=== PATIENT | female | born 2000 | race Caucasian/White ===

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

== ENCOUNTER 2025-03-14 09:50 | Day surgery (SDC) | payer OTHER, SELFPAY ==
[2025-03-14] VITALS (9 sets, daily range): BP systolic 89–115; BP diastolic 49–76; PULSE 60–90; RESP 16–20; TEMP 36.6–37.3; O2SAT 94–99; BMI 30.1
--- NOTE | ~2025-03-14 | CT_ITS ---
EXAMINATION: CT ABDOMEN AND PELVIS WITH CONTRAST CLINICAL INFORMATION: Right lower quadrant pain. COMPARISON: None available. TECHNIQUE: Multidetector volumetric images were obtained from the superior aspect of the liver through the pubic symphysis following administration 85 mL of Omnipaque 350 intravenous contrast. Sagittal and coronal reformatted images were obtained on the technologist's workstation. Oral contrast: No This CT examination was performed using dose optimization techniques as appropriate, variously including the following: *Automated exposure control *Adjustment of mA and/or kV according to patient size (this includes techniques or standardized protocols for targeted exams where dose is matched to indication/reason for exam; i.e. extremities or head) *Use of iterative reconstruction technique DLP: 523 mGy/cm. FINDINGS: LUNG BASES: The visualized lung bases are unremarkable. LIVER, GALLBLADDER, AND BILIARY TREE: The liver is normal in size, shape, and attenuation. No focal hepatic lesion or biliary ductal dilatation is present. The gallbladder is unremarkable with no evidence of radiopaque gallstones, gallbladder wall thickening, or obvious pericholecystic inflammatory changes. PANCREAS: Unremarkable. SPLEEN: Unremarkable. ADRENAL GLANDS: Unremarkable. KIDNEYS AND URETERS: The kidneys are normal in size, shape, and attenuation. No hydronephrosis, hydroureter, or calculi seen. No perinephric stranding. BLADDER: The bladder is nondistended. GASTROINTESTINAL TRACT: There is scattered stool and gas seen in the colon without distention. Appendix is not visualized with certainty. The stomach is nondistended. There is a large amount of hemorrhagic fluid and simple free fluid in the cul-de-sac. ABDOMINAL WALL: No significant hernia is appreciated. LYMPH NODES: Normal. VASCULAR: Unremarkable. PELVIC VISCERA: The uterus is anteverted and appears unremarkable. There is hypodense round lesion posterior and superior to uterus measuring 3.9 x 3.2 cm on axial image 6 9/3. It has a slightly hyperdense anterior wall on sagittal image 48/6 likely wall enhancement. There is high attenuation fluid/hemorrhage measuring 56 Hounsfield units associated with small amount of hypodense fluid in the dependent portion of cul-de-sac on axial image 69/3 , likely less complex fluid such as seroma. Composite findings may represent a ruptured ectopic or ruptured complex cyst OSSEOUS STRUCTURES: Unremarkable. CT/CT abdomen pelvis w IV con IMPRESSION: Large amount of hemorrhage and complex cystic fluid collection the cul-de-sac likely secondary to ruptured ovarian cyst or ruptured ectopic. There is a round hypodense lesion measuring fluid superior and posterior to uterus likely ovarian cyst with hyperdense ring. Appendix is not visualized. The gallbladder is unremarkable. Results were immediately called to Anum Lugo MD. in the ER at 12:20 PM Fleischner guidelines were followed. Electronically signed by: Vick Donnelly MD 03/14/2025 12:27 PM EDT
--- NOTE | ~2025-03-14 | XR_ITS ---
EXAMINATION: XR CHEST CLINICAL INFORMATION: chest pain, dyspnea COMPARISON: None available. TECHNIQUE: Frontal view of the chest was obtained. FINDINGS: No consolidation, pleural effusion or pneumothorax. No hyperinflation. Cardiomediastinal silhouette size is normal. S-shaped curvature of the thoracolumbar spine. XR/XR chest 1V IMPRESSION: No acute airspace disease. Questionable mild scoliosis versus positioning. Electronically signed by: Ministerio Joseph MD 03/14/2025 11:57 AM EDT
--- NOTE | ~2025-03-14 | US_ITS ---
EXAMINATION: US PELVIS TRANSABDOMINAL AND TRANSVAGINAL HISTORY: severe pain, free fluid on bedside US COMPARISON: Correlation is made with a CT of the abdomen with contrast performed earlier in the day. TECHNIQUE: Transabdominal and endovaginal real-time 2D barrera-scale ultrasound was performed. FINDINGS: There is a large amount of complex echogenic fluid in the pelvis consistent with hemorrhage. There is moderate amount of free fluid in the upper abdomen. Uterus: The uterus is normal in size, measuring 6.9 x 3.3 x 4.3 cm. Myometrium has a normal echotexture. No fibroids are identified. Endometrium: The endometrial stripe measures 7 mm in thickness. Right ovary: The right ovary measures 3.0 x 2.3 x 2.7 cm. The right ovary is normal in size and echotexture. Normal color and spectral Doppler waveforms are noted in the right ovarian artery and vein. Left ovary: The left ovary measures 4.1 x 3.9 x 4.0 cm. The left ovary is difficult to distinguish from surrounding hemorrhage. Multiple complex areas are noted which may represent a ruptured cyst. Normal color and spectral Doppler waveforms are noted in the left ovarian artery and vein. Pelvic fluid: none. US/US pelvic ovarian doppler IMPRESSION: Large amount of hemorrhage in the pelvis. Moderate fluid in the upper abdomen. Complex areas in the left ovary which may represent a ruptured cyst. Normal vascular flow is seen to both ovaries. Electronically signed by: Abiel Tenorio MD 03/14/2025 01:00 PM EDT
--- NOTE | ~2025-03-14 | US_ITS ---
EXAMINATION: US PELVIS TRANSABDOMINAL AND TRANSVAGINAL HISTORY: severe pain, free fluid on bedside US COMPARISON: Correlation is made with a CT of the abdomen with contrast performed earlier in the day. TECHNIQUE: Transabdominal and endovaginal real-time 2D barrera-scale ultrasound was performed. FINDINGS: There is a large amount of complex echogenic fluid in the pelvis consistent with hemorrhage. There is moderate amount of free fluid in the upper abdomen. Uterus: The uterus is normal in size, measuring 6.9 x 3.3 x 4.3 cm. Myometrium has a normal echotexture. No fibroids are identified. Endometrium: The endometrial stripe measures 7 mm in thickness. Right ovary: The right ovary measures 3.0 x 2.3 x 2.7 cm. The right ovary is normal in size and echotexture. Normal color and spectral Doppler waveforms are noted in the right ovarian artery and vein. Left ovary: The left ovary measures 4.1 x 3.9 x 4.0 cm. The left ovary is difficult to distinguish from surrounding hemorrhage. Multiple complex areas are noted which may represent a ruptured cyst. Normal color and spectral Doppler waveforms are noted in the left ovarian artery and vein. Pelvic fluid: none. US/US pelvic and transvaginal IMPRESSION: Large amount of hemorrhage in the pelvis. Moderate fluid in the upper abdomen. Complex areas in the left ovary which may represent a ruptured cyst. Normal vascular flow is seen to both ovaries. Electronically signed by: Abiel Tenorio MD 03/14/2025 01:00 PM EDT
[2025-03-14 10:57] LABS: MANUAL DIFF FLAG NO
--- NOTE | 2025-03-14 10:57 | ECG_ITS ---
Test Reason : abdominal pain Blood Pressure : */* mmHG Vent. Rate : 94 BPM Atrial Rate : 94 BPM P-R Int : 130 ms QRS Dur : 74 ms QT Int : 322 ms P-R-T Axes : 78 43 75 degrees QTcB Int : 402 ms Normal sinus rhythm with sinus arrhythmia Normal ECG No previous ECGs available Referred By: Kamilla Lugo Electronically Signed By: GERARDO MAIER MD
[2025-03-14 11:01] LABS: Basophils Absolute Auto 0.1 X10*3/uL (0.0-0.2); Basophils Percent Auto 0.4 % (0-2); Eosinophils Absolute Auto 0.1 X10*3/uL (0.0-0.4); Eosinophils Percent Auto 0.6 % (0-4); Hematocrit 37.5 % (37.0-47.0); Hemoglobin 12.4 g/dl (12.0-16.0); Imm Gran Abs Auto 0.09 X10*3/uL (0.00-0.03); Imm Gran Pct Auto 0.6 % (0.0-0.4); Lymphocytes Absolute Auto 1.6 X10*3/uL (1.2-4.9); Mean Corpuscular HGB Conc 33.1 g/dl (31.0-35.0); Mean Corpuscular Hemoglobin 27.1 pg (27.0-33.0); Mean Corpuscular Volume 82.1 fL (80.0-98.0); Mean Platelet Volume 11.8 fL (9.4-12.3); Monocytes Absolute Auto 0.9 X10*3/uL (0.1-1.2); Monocytes Percent Auto 5.3 % (2-11); Neutrophils Absolute Auto 13.6 x10*3/uL (2.0-8.3); Neutrophils Percent Auto 83.1 % (45-73); Platelet Count 176 X10*3/uL (160-400); Red Blood Count 4.57 X10*6/uL (4.20-5.50); Red Cell Distribution Width 13.5 % (11.0-16.0); White Blood Count 16.3 X10*3/uL (4.8-10.8)
[2025-03-14 11:13] LABS: Alanine Aminotransferase 23 U/L (0-31); Albumin Level 4.3 g/dL (3.5-5.0); Alkaline Phosphatase 45 U/L (39-117); Anion Gap 11 (12-20); Aspartate Amino Transferase 21 U/L (5-31); Bilirubin Total 0.3 mg/dL (0.0-1.0); Blood Urea Nitrogen 15 mg/dL (9-16); Calcium 8.6 mg/dL (8.4-10.2); Carbon Dioxide 23 mmol/L (22-29); Chloride 109 mmol/L (96-108); Creatinine Clr Calc Pharmacy 123.9; Estimated Glomerular Filt Rate > 60; Glucose Random 109 mg/dL (60-115); Sodium 139 mmol/L (135-145); Total Protein 6.9 g/dL (6.5-8.0)
--- NOTE | 2025-03-14 11:17 | ED.ABDPAIN ---
HPI - Abdominal Pain General Chief Complaint: Abdominal Pain Stated Complaint: abd pain Time Seen by Provider: 03/14/25 10:47 Source: patient Mode of arrival: ambulatory Limitations: no limitations History of Present Illness ED Provider: AMERICA HPI narrative: 24 yo female with no sig PMH no prior hx of surgery not on any OCPs who reports severe abdominal pain around 3am that started lower and now has progressed to more severe and she cannot take a deep breath due to the pain, she also has nausea. She came back from a Cruise to [facility] about a week ago but has not had n/v/d and no URI symptoms. She notes she cannot walk well due to the pain. She has never had this before. She feels weak and tired. Her LMP was at end of January it was heavier than usual. She is not using any protection. She denies urinary symptoms. She denies trauma to the abdomen. Given her presentation concern for ruptured ectopic . Asked RN to place in room and start IV line. The pain radiates to bilateral shoulders Pertinent past history: none Onset (ago): hour(s) (3am today) Location: diffuse Severity: severe Quality: stabbing Migration to: no migration Exacerbating factors: movement Relieving factors: nothing Associated symptoms: nausea Related Data Home Medications ?Medication ?Instructions ?Recorded ?Confirmed No Known Home Meds 11/10/20 02/05/21 Allergies Allergy/AdvReac Type Severity Reaction Status Date / Time amoxicillin AdvReac unknown Verified 03/14/25 10:37 Review of Systems Review of Systems Constitutional : No Weight loss, No Fever, No Chills ENT/Mouth : No sore throat, No Rhinorrhea Eyes: No Swelling, No Redness Cardiovascular : No Chest Pain, No SOB, NoEdema Respiratory : No Cough, No Sputum, No Wheezing Gastrointestinal : Positive Nausea, no Vomiting, no Diarrhea, positive abdominal Pain, No Hematochezia, No Melena Genitourinary : No Dysuria, No Urinary Frequency, No Hematuria, No Urgency Musculoskeletal : No joint pain, No Myalgias, No Joint Swelling Skin : No Skin Lesions, No rash Neuro : No Weakness, No Numbness, No Dizziness, No Headache Psych : No Anxiety/Panic, No Depression Heme/Lymph: No Bruising, No Lymphadenopathy Endocrine : No Polyuria, No Polydipsia All other systems reviewed and are negative. [facility] Past Medical History Attestation statement: The following information was validated with the patient. Source: old records reviewed Medical History No pertinent past medical history Social History Social History (Updated 03/14/25 @ 12:07 by Kamilla Lugo DO) Alcohol intake: never Patient Tobacco Use Status: Never used Tobacco Advance Directives: No Advance Directives Information Provided: Yes Do you have a plan to hurt others: No Plan Gender identity: Female Physical Exam ED Vital Signs: Vital Signs - 24 hr 03/14/25 10:35 03/14/25 12:50 Temperature 98.1 F 99.2 F Pulse Rate 90 76 Respiratory Rate 16 16 Blood Pressure 113/76 102/60 Pulse Oximetry 99 98 Oxygen Delivery Method Room Air Room Air BMI result Body Mass Index 30.1 Appearance: Alert. Oriented X3. in pain moderate acute distress. walking hunched over Eyes: Pupils equal, round and reactive to light. ENT: Pharynx normal. Neck: Normal inspection. Neck supple. CVS: Normal heart rate and rhythm. Pulses normal. Respiratory: No respiratory distress. Breath sounds normal. Abdomen: diffuse ttp with severe pain rebound and guarding Skin: Skin warm and dry. Normal skin color. Normal skin turgor. Extremities: No lower extremity edema. No calf ttp Neuro: Oriented X 3. No motor deficit. No sensory deficit. CN2-12 intact Procedures Procedure Narrative Procedure Narrative: EMERGENCY ULTRASOUND INTERPRETATION-Point of Care Trauma (FAST)? Limited Abdominal Ultrasound The study reveals: Impression:? -Peritoneum: pos FREE FLUID Indication: severe abdominal pain -Mechanism:? -Type: severe abdominal pain Fluid (FAST Views):? -Hepatorenal: POS -Perisplenic: POS -Retrovesical/Pelvic: POS Other views:? Performed by: AMERICA Date: 03/14/25 Time: 1138am CPT Codes: 11615 ; 28184 ; 87977; Reference Codes? [email or web address].[email or web address]/[email or web address]] Course Course Course Narrative: + FAST but neg urine test, type and screen and HCG ordered stat consult to OBGYN 1136am quant negative at this time notifying surgery as well Dr. Kohli aware will follow along 1156am bleeding and free fluid behind uterus ?ectopic vs ruptured cyst it is unclear - call from Dr. Cony Donnelly suspects ruptured cyst vs ectopic has hemorrhage and free fluid 54mm Dr. Parisi to come down and see patient 1222pm Reevaluation(s) Reevaluation #1: NPO since 10pm Medical Decision Making Medical Decision Making [facility] Narrative: 24 yo female with PMH of recent abnormal LMP and not using precautions. She has acute abdomen on exam - at this time stat quant, IVF and IV morphine for pain. She will get bedside US for free fluid as soon as she is in placed on stretcher. I have asked RN to place 2 lines. She denies trauma to the abdomen - could be ruptured ectopic, ruptured ovarian cyst, perforation, splenic rupture. Asked chargemaster analyst to move her to main ED. Patient has been kept NPO Differential Diagnosis Differential Diagnoses: The differential diagnosis associated with the presentation includes ruptured ectopic, ruptured ovarian cyst, perforation, splenic rupture Admission/Observation Consideration of admission/observation: Escalation of care including admission/observation considered to go to OR with Dr. 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 Lab Attestation statement: I reviewed the patient's lab results. 03/14/25 10:50 03/14/25 10:50 Labs: Lab Results 03/14/25 03/14/25 03/14/25 Range/Units 10:50 11:10 11:21 WBC 16.3 H (4.8-10.8) X10*3/uL RBC 4.57 (4.20-5.50) X10*6/uL Hgb 12.4 (12.0-16.0) g/dl Hct 37.5 (37.0-47.0) % MCV 82.1 (80.0-98.0) fL MCH 27.1 (27.0-33.0) pg MCHC 33.1 (31.0-35.0) g/dl RDW 13.5 (11.0-16.0) % Plt Count 176 (160-400) X10*3/uL MPV 11.8 (9.4-12.3) fL Immature Gran % (Auto) 0.6 H (0.0-0.4) % Neut % (Auto) 83.1 H (45-73) % Lymph % (Auto) 10.0 L (20-40) % [place] % (Auto) 5.3 (2-11) % Eos % (Auto) 0.6 (0-4) % Baso % (Auto) 0.4 (0-2) % Lymph # (Auto) 1.6 (1.2-4.9) X10*3/uL [place] # (Auto) 0.9 (0.1-1.2) X10*3/uL Eos # (Auto) 0.1 (0.0-0.4) X10*3/uL Baso # (Auto) 0.1 (0.0-0.2) X10*3/uL Abs Immat Gran (auto) 0.09 H (0.00-0.03) X10*3/uL Absolute Neuts (auto) 13.6 H (2.0-8.3) x10*3/uL Absolute Nucleated RBC 0.000 (0.0-0.012) X10*3/uL Nucleated RBC % (auto) 0.0 (0.0-0.2) /100WBC D-Dimer High Sensitivty 349 NG/ML Sodium 139 (135-145) mmol/L Potassium 4.0 (3.3-5.1) mmol/L Chloride 109 H (96-108) mmol/L Carbon Dioxide 23 (22-29) mmol/L Anion Gap 11 L (12-20) BUN 15 (9-16) mg/dL Creatinine 0.70 (0.5-1.4) mg/dL Estim Creat Clear Calc 123.9 Estimated GFR > 60 Random Glucose 109 (60-115) mg/dL Lactic Acid 1.2 (0.5-2.0) mmol/L Calcium 8.6 (8.4-10.2) mg/dL Total Bilirubin 0.3 (0.0-1.0) mg/dL AST 21 (5-31) U/L ALT 23 (0-31) U/L Alkaline Phosphatase 45 (39-117) U/L C-Reactive Protein 0.14 (< or = 0.50) mg/dL Total Protein 6.9 (6.5-8.0) g/dL Albumin 4.3 (3.5-5.0) g/dL Lipase 15 (8-78) U/L Beta HCG, Quant < 2 mIU/mL Urine Color Yellow Urine Appearance Clear Urine pH 5.5 (5.0-9.0) Ur Specific [place] 1.025 (1.005-1.025) Urine Protein Negative (Neg-Trace) mg/dL Urine Glucose (UA) Negative (Negative) mg/dL Urine Ketones Negative (Negative) mg/dL Urine Blood Negative (Negative) Urine Nitrite Negative (Negative) Ur Leukocyte Esterase Trace H (Negative) Urine RBC 0-2 (0-2) /HPF Urine WBC 0-5 (0-5) /HPF Ur Squamous Epith Cells 0-2 (0-2) /HPF Urine Bacteria None Seen (None Seen) Hyaline Casts 0-2 (0-2) /LPF Urine Test NEGATIVE (NEGATIVE) Blood Type Antibody Screen 03/14/25 Range/Units 11:44 WBC (4.8-10.8) X10*3/uL RBC (4.20-5.50) X10*6/uL Hgb (12.0-16.0) g/dl Hct (37.0-47.0) % MCV (80.0-98.0) fL MCH (27.0-33.0) pg MCHC (31.0-35.0) g/dl RDW (11.0-16.0) % Plt Count (160-400) X10*3/uL MPV (9.4-12.3) fL Immature Gran % (Auto) (0.0-0.4) % Neut % (Auto) (45-73) % Lymph % (Auto) (20-40) % [place] % (Auto) (2-11) % Eos % (Auto) (0-4) % Baso % (Auto) (0-2) % Lymph # (Auto) (1.2-4.9) X10*3/uL [place] # (Auto) (0.1-1.2) X10*3/uL Eos # (Auto) (0.0-0.4) X10*3/uL Baso # (Auto) (0.0-0.2) X10*3/uL Abs Immat Gran (auto) (0.00-0.03) X10*3/uL Absolute Neuts (auto) (2.0-8.3) x10*3/uL Absolute Nucleated RBC (0.0-0.012) X10*3/uL Nucleated RBC % (auto) (0.0-0.2) /100WBC D-Dimer High Sensitivty NG/ML Sodium (135-145) mmol/L Potassium (3.3-5.1) mmol/L Chloride (96-108) mmol/L Carbon Dioxide (22-29) mmol/L Anion Gap (12-20) BUN (9-16) mg/dL Creatinine (0.5-1.4) mg/dL Estim Creat Clear Calc Estimated GFR Random Glucose (60-115) mg/dL Lactic Acid (0.5-2.0) mmol/L Calcium (8.4-10.2) mg/dL Total Bilirubin (0.0-1.0) mg/dL AST (5-31) U/L ALT (0-31) U/L Alkaline Phosphatase (39-117) U/L C-Reactive Protein (< or = 0.50) mg/dL Total Protein (6.5-8.0) g/dL Albumin (3.5-5.0) g/dL Lipase (8-78) U/L Beta HCG, Quant mIU/mL Urine Color Urine Appearance Urine pH (5.0-9.0) Ur Specific [place] (1.005-1.025) Urine Protein (Neg-Trace) mg/dL Urine Glucose (UA) (Negative) mg/dL Urine Ketones (Negative) mg/dL Urine Blood (Negative) Urine Nitrite (Negative) Ur Leukocyte Esterase (Negative) Urine RBC (0-2) /HPF Urine WBC (0-5) /HPF Ur Squamous Epith Cells (0-2) /HPF Urine Bacteria (None Seen) Hyaline Casts (0-2) /LPF Urine Test (NEGATIVE) Blood Type O Positive Antibody Screen NEGATIVE Independent Interpretation I performed an independent interpretation of an: EKG, Plain X-Ray (no pneumonia), Ultrasound (?L large complex area and rupture of cyst) and CT Scan (free fluid and blood throughout, no perforation, concentrated near uterus as well) Interpretation: Rate: 94 Rhythm: NSR [place]: normal Normal P waves. Normal BENITA. Normal QRS complex. ST T wave : normal no JASMINA qTC: 402 prior studies: no acute ischemia The study has been interpreted contemporaneously by me. . Radiology Impression Discussion of test interpretation with radiology: I discussed test interpretation with the radiologist and I have reviewed the radiologist's reading. Independent Historian Clinical information obtained from an independent historian. History obtained from or confirmed by: Spouse External Record Review External record reviewed: Outpatient record Medications Administered Discontinued Medications Generic Name Dose Route Start Last Admin Trade Name Darrelq PRN Reason Stop Dose Admin Hydromorphone HCl 0.5 mg 03/14/25 11:37 03/14/25 11:43 Hydromorphone Hcl 0.5 Mg/0.5 Ml Syringe IVPUSH 03/14/25 11:38 0.5 mg ONCE ONE Administration Protocol Hydromorphone HCl 0.5 mg 03/14/25 12:37 03/14/25 12:45 Hydromorphone Hcl 0.5 Mg/0.5 Ml Syringe IVPUSH 03/14/25 12:38 0.5 mg ONCE ONE Administration Protocol Lactated Ringer's 1,000 mls @ 999 mls/hr 03/14/25 10:57 03/14/25 12:48 Lr IV 03/14/25 11:57 Infused .Q1H1M ONE Infusion Iohexol 85 ml 03/14/25 12:00 03/14/25 12:00 Iohexol 350 Mg/Ml 100 Ml Infus..Btl IV 03/14/25 12:01 85 ml ONCE ONE Administration Ketorolac Tromethamine 15 mg 03/14/25 10:57 03/14/25 11:24 Ketorolac Tromethamine 15 Mg/Ml Vial IVPUSH 03/14/25 10:58 15 mg ONCE ONE Administration Morphine Sulfate 4 mg 03/14/25 10:57 03/14/25 11:24 Morphine Sulfate 4 Mg/Ml Cartridge IVPUSH 03/14/25 10:58 4 mg ONCE ONE Administration Protocol Ondansetron HCl 4 mg 03/14/25 10:57 03/14/25 11:24 Ondansetron Hcl 4 Mg/2 Ml Vial IVPUSH 03/14/25 10:58 4 mg ONCE ONE Administration Critical Care Time Critical Care Time Critical Care Time: Yes Total Critical Care Time: 60 Attestation: Time is exclusive of separately billable procedures. Time includes: direct patient care, patient reassessment, coordination of patient care, interpretation of data (laboratory data, pulse oximetry, CT scans, chest xrays), review of patient's medical records, medical consultation and documentation of patient care. STAT IVF , repeat IV dilaudid with pain control, repeat assessments. Procedures excluded from critical care time: electrocardiography. Discharge Plan Discharge Clinical Impression: Ovarian cyst rupture, Intra-abdominal bleeding Patient Disposition: Xfer Other Transfer Details: short stay surgery
[2025-03-14] MEDS: Lactated Ringers 1,000 ML 999 ML IV (11:24)
[2025-03-14] MEDS: Ketorolac Tromethamine 15 MG/ML VIAL IVPUSH (11:24)
[2025-03-14] MEDS: ondansetron HCL 4 MG/2 ML VIAL IVPUSH (11:24)
[2025-03-14] MEDS: Morphine Sulfate 4 MG/ML CARTRIDGE IVPUSH (11:24)
[2025-03-14 11:32] LABS: Appearance Urine Clear; Color Urine Yellow; Glucose Urine UA Negative (Negative); Leukocyte Esterase Urine Trace (Negative); Nitrite Urine Negative (Negative); PH 5.5 (5.0-9.0); Specific Gravity - Urine 1.025 (1.005-1.025); UMIC TRIGGER UACC YES; Urine Blood Negative (Negative); Urine Ketones Negative (Negative); Urine Protein Negative (Neg-Trace)
[2025-03-14 11:34] LABS: UPreg QC Valid YES; Urine Pregnancy NEGATIVE (NEGATIVE)
[2025-03-14 11:35] LABS: Bacteria Urine None Seen (None Seen); Hyaline Casts Urine 0-2 /LPF (0-2); RBC Urine 0-2 /HPF (0-2); Squamous Epithelial Cell Urine 0-2 /HPF (0-2); WBC Urine 0-5 /HPF (0-5)
[2025-03-14 11:39] LABS: D Dimer High Sensitivity 349 NG/ML
[2025-03-14] MEDS: HYDROmorphone HCl 0.5 MG/0.5 ML SYRINGE IVPUSH ×2 (11:43→12:45)
--- NOTE | 2025-03-14 11:44 | PM.GYNCN ---
[employer]ASS [employer]ING [employer]IPMENT [employer]ENDER - CN: HPI Data of Consult Consult date: 03/14/25 Primary Care Provider: None Physician Consult Narrative Narrative: I was consulted at 11:40 on Lucy Garcia who is a 24 year old female presented to emergency room with severe pelvic pain that started 1 hour after intercourse at night and start getting worse the pain is bilateral pelvic associated with shoulder pain The following workup was done in the emergency room: H&H 12.4/37.5 on arrival HCG less than 2 CT scan of abdomen and pelvis showed the following: IMPRESSION: Large amount of hemorrhage and complex cystic fluid collection the cul-de-sac likely secondary to ruptured ovarian cyst or ruptured ectopic. There is a round hypodense lesion measuring fluid superior and posterior to uterus likely ovarian cyst with hyperdense ring. Appendix is not visualized. The gallbladder is unremarkable. Results were immediately called to Anum Lugo MD. in the ER at 12:20 PM Fleischner guidelines were followed. Pelvic ultrasound showed the following: IMPRESSION: Large amount of hemorrhage in the pelvis. Moderate fluid in the upper abdomen. Complex areas in the left ovary which may represent a ruptured cyst. Normal vascular flow is seen to both ovaries. cc:: CC: OB [facility] Past Medical History Medical History No pertinent past medical history Social History Social History (Updated 03/14/25 @ 12:07 by Kamilla Lugo DO) Alcohol intake: never Patient Tobacco Use Status: Never used Tobacco Gender identity: Female Meds Allergies Allergy/AdvReac Type Severity Reaction Status Date / Time amoxicillin AdvReac unknown Verified 03/14/25 10:37 Active Medications: Current Medications Lactated Ringer's (Lr) 1,000 mls @ 999 mls/hr IV .Q1H1M ONE Stop: 03/14/25 11:57 Last Admin: 03/14/25 11:24 Dose: 999 mls/hr Home Medications ?Medication ?Instructions ?Recorded ?Confirmed ?Last Taken ?Type No Known Home Meds 11/10/20 02/05/21 Unknown History [employer]ER Physical Exam Vitals Vital signs: Temp Pulse Resp BP Pulse Ox O2 Del Method 98.1 F 90 16 113/76 99 Room Air 03/14/25 10:35 03/14/25 10:35 03/14/25 10:35 03/14/25 10:35 03/14/25 10:35 03/14/25 10:35 BMI result Body Mass Index 30.1 Abdomen Auscultation/Inspection/Palpation: Soft, Tenderness (Bilateral lower pelvic), Guarding and Rebound tenderness Female Genitalia (Pelvic) Vulva: No lesions Vagina: Nontender Cervix: Grossly normal and Cervical motion tenderness Uterus: Normal size and Tender Adnexa/Parametria: Adnexal Tenderness: Bilateral, Adnexal Mass: Left, Parametrial Tenderness: None and Parametrial Mass: None [employer]ER - Results Labs 03/14/25 10:50 03/14/25 10:50 Labs: Short CBC 03/14/25 Range/Units 10:50 WBC 16.3 H (4.8-10.8) X10*3/uL Hgb 12.4 (12.0-16.0) g/dl Hct 37.5 (37.0-47.0) % Plt Count 176 (160-400) X10*3/uL BMP 03/14/25 10:50 Sodium 139 Potassium 4.0 Chloride 109 H Carbon Dioxide 23 BUN 15 Creatinine 0.70 Calcium 8.6 Liver Function 03/14/25 Range/Units 10:50 Total Bilirubin 0.3 (0.0-1.0) mg/dL AST 21 (5-31) U/L ALT 23 (0-31) U/L Alkaline Phosphatase 45 (39-117) U/L Albumin 4.3 (3.5-5.0) g/dL Urine 03/14/25 Range/Units 11:10 Urine Color Yellow Urine Appearance Clear Urine pH 5.5 (5.0-9.0) Ur Specific [place] 1.025 (1.005-1.025) Urine Protein Negative (Neg-Trace) mg/dL Urine Glucose (UA) Negative (Negative) mg/dL Urine Test NEGATIVE (NEGATIVE) Imaging CT scan - pelvis: Radiologist's impression: ITS Impressions Chest X-Ray 03/14/25 10:52 IMPRESSION: No acute airspace disease. Questionable mild scoliosis versus positioning. Electronically signed by: Ministerio Joseph MD 03/14/2025 11:57 AM EDT RP Abdomen/Pelvis CT 03/14/25 10:55 IMPRESSION: Large amount of hemorrhage and complex cystic fluid collection the cul-de-sac likely secondary to ruptured ovarian cyst or ruptured ectopic. There is a round hypodense lesion measuring fluid superior and posterior to uterus likely ovarian cyst with hyperdense ring. Appendix is not visualized. The gallbladder is unremarkable. Results were immediately called to Anum Lugo MD. in the ER at 12:20 PM Fleischner guidelines were followed. Electronically signed by: Vick Dnonelly MD 03/14/2025 12:27 PM EDT RP Pelvic/Transvag US 03/14/25 11:06 IMPRESSION: Large amount of hemorrhage in the pelvis. Moderate fluid in the upper abdomen. Complex areas in the left ovary which may represent a ruptured cyst. Normal vascular flow is seen to both ovaries. Electronically signed by: Abiel Tenorio MD 03/14/2025 01:00 PM EDT RP Assessment and Plan (1) Ruptured ovarian cyst: Status: Acute Discussed with the patient the finding on CT scan and pelvic ultrasound pointing towards ruptured ovarian cyst with intra-abdominal bleeding. Given the patient has severe pain, physical exam, large amount of blood in the pelvis and upper abdomen and requirement high-dose of narcotics to control her pain, recommended diagnostic laparoscopy with possible laparoscopic ovarian cystectomy possible oophorectomy possible laparotomy and evacuation of hemoperitoneum. All the pros and cons were discussed with the patient including the risks including but not limited to: Risk of bleeding, infection, possible injury to bladder, bowel, ureter, bladder, possible injury to vessels and need for blood transfusion with all its risks including HIV, hepatitis-B and C and other blood borne pathogens, possible laparotomy, possible salpingo and/or oophorectomy, hysterectomy, possible incision is infection or hernia, possible thrombosis in the legs or the lungs, possible scar tissue development and chronic pelvic pain, possible negative impact on future fertility, possible incomplete removal of the ovarian cyst and recurrence, possible . All questions answered, the patient verbalized understanding agreed with the plan and signed the consent. Type and screen sent.
[2025-03-14 11:48] LABS: C Reactive Protein 0.14 mg/dL (< or = 0.50); Lipase 15 U/L (8-78)
[2025-03-14 11:48] LABS: Lactic Acid 1.2 mmol/L (0.5-2.0)
[2025-03-14 11:53] LABS: HCG Quantitative < 2 mIU/mL
--- OUTSIDE RECORDS SUMMARY | 2025-03-14 11:56 | XMS_ITS | Encounter Summary ---
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 Role Phone Provider, Augustin MCCULLOUGH Primary Care Provider [phone] Encounter Details Date Type Department Care Team (Late st Contact Info) Description 05/01/2017 Conversion Encounter [facility] [address] [place] [address] Social History Tobacco Use Types Packs/Day Years Used Date Smoking Tobacco: Never Comments:Never smoker Comments Unknown Sex and Gender Information Value Date Recorded Sex Assigned at Not on file Legal Sex Female 4:58 PM EDT Gender Identity Not on file Sexual Orientation Bisexual 07/12/2020 6: 03 PM EDT documented as of this encounter Plan of Treatment Not on file documented as of this encounter Visit Diagnoses Not on filedocumented in this encounter Care Teams Laundry Worker Relationship Specialty Start Date End Date Provider, MD Augustin [address] [place] [id number] PCP - General Pediatrics 04/23/23 08/25/23 documented as of this encounter
[2025-03-14] MEDS: iohexoL 350 MG/ML 100 ML INFUS..BTL 85 ML IV (12:00)
--- NOTE | 2025-03-14 13:00 | PC.NURSE ---
Report given to CECY RN.
--- NOTE | 2025-03-14 13:18 | PC.NURSE ---
Taken to preop at 1317
--- NOTE | 2025-03-14 13:30 | P.CONAN_ITS ---
[facility] Active Problems Active Problems: All Active Problems (Updated 03/14/25 @ 12:37 by Kamilla Lugo DO) Intra-abdominal bleeding (Acute) Ovarian cyst rupture (Acute) Ruptured ovarian cyst (Acute) Insertion of Nexplanon (Acute) Counseling for initiation of control method (Acute) Past Medical History Medical History No pertinent past medical history Family History Family history of problems with anesthesia: No Surgical History History of Problems with Anesthesia: No Social History Social History (Updated 03/14/25 @ 12:07 by Kamilla Lugo DO) Alcohol intake: never Patient Tobacco Use Status: Never used Tobacco Use of substances other than those prescribed or required for medical reasons: Yes Substance Use Frequency: Daily Have you been hit, kicked, punched, or otherwise hurt by someone within the past year? If so, by whom?: No Are you DNR?: No Advance Directives: No Advance Directives Information Provided: Yes Do you have a plan to hurt others: No Plan Patient : No (hcg negative see labs) Gender identity: Female Meds Allergies Allergy/AdvReac Type Severity Reaction Status Date / Time amoxicillin AdvReac unknown Verified 03/14/25 10:37 Active Medications: Current Medications Lactated Ringer's (Lr) 1,000 mls @ 80 mls/hr IVCONT .[id number] CARMELITA Home Medications ?Medication ?Instructions ?Recorded ?Confirmed ?Last Taken ?Type No Known Home Meds 11/10/20 02/05/21 Un known History Exam Height,Weight and Vital Signs: Height 5 ft 3 in Weight 77.1 kg Last Vital Signs Temp 98.1 F 03/14/25 13:26 Pulse 65 03/14/25 13:26 Resp 16 03/14/25 13:26 BP 89/51 L 03/14/25 13:26 Pulse Ox 98 03/14/25 13:26 O2 Del Method Room Air 03/14/25 13:26 Pertinent Lab Results Pertinent Lab Results: Laboratory Tests 03/14/25 03/14/25 03/14/25 10:50 11:10 11:21 WBC 16.3 H RBC 4.57 Hgb 12.4 Hct 37.5 MCV 82.1 MCH 27.1 MCHC 33.1 RDW 13.5 Plt Count 176 MPV 11.8 Immature Gran % (Auto) 0.6 H Neut % (Auto) 83.1 H Lymph % (Auto) 10.0 L Coleman % (Auto) 5.3 Eos % (Auto) 0.6 Baso % (Auto) 0.4 Lymph # (Auto) 1.6 Coleman # (Auto) 0.9 Eos # (Auto) 0.1 Baso # (Auto) 0.1 Abs Immat Gran (auto) 0.09 H Absolute Neuts (auto) 13.6 H Absolute Nucleated RBC 0.000 Nucleated RBC % (auto) 0.0 D-Dimer High Sensitivty 349 Sodium 139 Potassium 4.0 Chloride 109 H Carbon Dioxide 23 Anion Gap 11 L BUN 15 Creatinine 0.70 Estim Creat Clear Calc 123.9 Estimated GFR > 60 Random Glucose 109 Lactic Acid 1.2 Calcium 8.6 Total Bilirubin 0.3 AST 21 ALT 23 Alkaline Phosphatase 45 C-Reactive Protein 0.14 Total Protein 6.9 Albumin 4.3 Lipase 15 Beta HCG, Quant < 2 Urine Color Yellow Urine Appearance Clear Urine pH 5.5 Ur Specific Crawford 1.025 Urine Protein Negative Urine Glucose (UA) Negative Urine Ketones Negative Urine Blood Negative Urine Nitrite Negative Ur Leukocyte Esterase Trace H Urine RBC 0-2 Urine WBC 0-5 Ur Squamous Epith Cells 0-2 Urine Bacteria None Seen Hyaline Casts 0-2 Urine Test NEGATIVE Blood Type Antibody Screen 03/14/25 11:44 WBC RBC Hgb Hct MCV MCH MCHC RDW Plt Count MPV Immature Gran % (Auto) Neut % (Auto) Lymph % (Auto) Coleman % (Auto) Eos % (Auto) Baso % (Auto) Lymph # (Auto) Coleman # (Auto) Eos # (Auto) Baso # (Auto) Abs Immat Gran (auto) Absolute Neuts (auto) Absolute Nucleated RBC Nucleated RBC % (auto) D-Dimer High Sensitivty Sodium Potassium Chloride Carbon Dioxide Anion Gap BUN Creatinine Estim Creat Clear Calc Estimated GFR Random Glucose Lactic Acid Calcium Total Bilirubin AST ALT Alkaline Phosphatase C-Reactive Protein Total Protein Albumin Lipase Beta HCG, Quant Urine Color Urine Appearance Urine pH Ur Specific Crawford Urine Protein Urine Glucose (UA) Urine Ketones Urine Blood Urine Nitrite Ur Leukocyte Esterase Urine RBC Urine WBC Ur Squamous Epith Cells Urine Bacteria Hyaline Casts Urine Test Blood Type O Positive Antibody Screen NEGATIVE Airway Mallampati Class: II TM Dist: >3cm Neck ROM: Full Heart: rrr Lungs: cta Assessment and Plan Assessment Anesthesia Assessment: Anesthesia Plan Discussed and Chart Reviewed Final Anesthetic Review Family History of Problems with Anesthesia: No History of Problems with Anesthesia: No NPO: Yes ASA Class: I and Emergency Final Preanesthetic Review: No Changes in Pt Med Stat, Meds/Allgs Chart Reviewed and Consent Obtained/Reviewed Patient Risk: Intermediate Procedure Risk: Low Anesthetic Plan Anesthetic Plan: GA Disposition: Standard PACU
--- NOTE | 2025-03-14 14:57 | P.BOP_ITS ---
Brief Operative Note Date of Service: 03/14/25 Pre-op diagnosis: Ruptured ovarian cyst with hemoperitoneum Post-op diagnosis: same (500 cc of hemoperitoneum, left ruptured hemorrhagic cyst bleeding) Procedure: Laparoscopic left ovarian cystectomy with evacuation of 500 cc of hemoperitoneum Surgeon: Perez Parisi MD Anesthesia: GETA Was an Chemical Production Machine Operator used for this Procedure?: No Estimated blood loss (mL): 20 Pathology: other (Left ovarian cyst wall) Condition: stable Disposition: PACU
--- NOTE | 2025-03-14 14:58 | W.PM.OPN ---
Operative Note Operative Note Date of Service: 03/14/25 Narrative: PREOPERATIVE DIAGNOSIS:? Ruptured ovarian cyst with hemoperitoneum POSTOPERATIVE DIAGNOSIS:? Ruptured left ovarian hemorrhagic cyst bleeding with 500 cc of hemoperitoneum Procedure: Laparoscopic left ovarian cystectomy with evacuation of 500 cc of hemoperitoneum QBL: Minimal Anesthesia: GETA SURGEON:? Perez Parisi MD?? Cold Storage Worker: Complications: None Pathology: Left ovarian cyst wall DESCRIPTION OF PROCEDURE:?The patient was taken to the OR where general anesthesia was easily obtained. The patient was then prepped and draped in a sterile fashion and placed in dorsal lithotomy position. A speculum was introduced into the patient?s vagina for cervical visualization. Once the cervix was visualized, a single-toothed tenaculum was applied to the upper lip of the cervix, and a Humi manipulator was introduced into the patient?s cervix. The single tooth tenaculum was then removed and hemostasis was assured?using pressure. a Oconnor catheter?was inserted and clear urine started draining. Gloves were changed to clean ones. Attention was then drawn to the abdomen where a 10 mm longitudinal incision was done intra umbilical and carried down all the way to the fascia, which was tented?up using 2 Ethan clamps and was nicked in the midline and then extended on both end of the incision?, them using 2 pick?ups the peritoneum?was entered with Metzenbaum scissors and under direct visualization, a 10 mm Mckeon trocar was introduced into the patient?s abdomen. Once intraperitoneal placement was confirmed with direct visualization, pneumoperitoneum was started & was easily obtained.Then, two fingerbreadths above the pubic symphysis and towards the?right lower quadrant, under direct visualization, a 5 mm trocar was then introduced into the patient?s abdomen and a 10 mm trocar on the left?lower quadrant was placed?in a similar manner. The patient was placed in Trendelenburg position, Inspection revealed 500 cc of hemoperitoneum with left hemorrhagic ovarian cyst bleeding otherwise normal pelvic structures. Using the large suction irrigating through the 10 mm left lower quadrant trocar, suction 500 cc of hemoperitoneum was done. The cyst was then stabilized with a grasper. Using LigaSure, a cystotomy was done. The cystotomy was extended to allow introduction of the suction profile shaper operator into the cyst and the cyst content was aspirated and the cyst cavity irrigated thoroughly. The cystotomy was then extended in the direction of the ovarian axis and the internal butt of the cyst were inspected there were bleeding edges and bleeding bed the cyst wall was grasped dissected of the ovarian stroma with a blunt and sharp dissection using LigaSure. The forceps grasping the cyst wall was rotated to assist in the dissection in peeling away the cyst wall from the surrounding ovarian. Incomplete areas of excision were excised and fulguration to destroy the lining of the cells and to control the bleeding was done using LigaSure. Hemostasis was assured and suction irrigation was done at the end. Copious irrigation was done. Once good hemostasis was noted from the patient?s abdomen, pneumoperitoneum was deflated and all trocars were removed. Infraumbilical fascia was closed with 0 Vicryl and interrupted suture. The skin was closed with 4-0 Vicryl. The Right and left?lower quadrant ports were closed with 0 Vicryl. Bupivicaine 0.25 10 cc were injected subcuticularly in the 3 incisions. Then speculum was put back in the vagina inspection revealed?hemostasis at the site of the tenaculum, the?humi manipulator was removed? and Oconnor was draining clear urine was taken out too. Sponge, lap and needle counts were correct x2. The patient was taken to the recovery room in stable condition.
[2025-03-14 15:35] LABS: Bacterial Vaginosis PCR NEGATIVE (Negative); Candida Group PCR DETECTED (Not Detect); Candida glab krusei PCR NOT DETECTED (Not Detect); Trichomonas vaginalis PCR NOT DETECTED (Not Detect)
[2025-03-14] MEDS: Ondansetron ODT 4 MG TAB.RAPDIS TRANSLINGU (16:16)
[2025-03-14 18:01] LABS: CT PCR NOT DETECTED (Not Detect.); NG PCR NOT DETECTED (Not Detect.)
== END 2025-03-14 16:25 | disposition home or self-care (01) ==
LOC: HO.ED 12:45 → HO.SSS 12:48
PROVIDERS: Emergency Provider Emergency Medicine; Visit Provider Obstetrics & Gynecology
PROC: (CPT 58662; principal; 2025-03-14 13:30)
DX: N83.12 Corpus luteum cyst of left ovary (principal); R10.31 Right lower quadrant pain
CPT/HCPCS: 58662; 36415; 71045; 74177; 76830; 76856; 80053; 81001; 81025; 81515; 83605; 83690; 84702; 85025; 85379; 86140; 86850; 86900; 86901; 87040; 87491; 87591; 88304; 88305; 93005; 93975; 96361; 96374; 96375; 96376; 99284; 99285; J0330; J0665; J1100; J1171; J1885; J2003; J2250; J2270; J2405; J2704; J3010; J7120; Q9967

== ENCOUNTER → 2025-03-14 10:57 | Outpatient (BNV) | payer OTHER, SELFPAY | PROVIDERS: Emergency Provider Emergency Medicine; Visit Provider Radiology Diagnostic Radiology | DX: K66.1 Hemoperitoneum (principal); R07.9 Chest pain, unspecified; R06.00 Dyspnea, unspecified | CPT/HCPCS: 71045; 74177; 76830; 76856; 93975 ==

== ENCOUNTER → 2025-03-14 10:57 | Outpatient (BNV) | payer OTHER, SELFPAY | PROVIDERS: Emergency Provider Emergency Medicine; Visit Provider Internal Medicine Cardiovascular Disease | DX: R10.9 Unspecified abdominal pain (principal) | CPT/HCPCS: 93010 ==

== ENCOUNTER → 2025-03-14 12:47 | Outpatient (BNV) | payer OTHER, SELFPAY | PROVIDERS: Emergency Provider Emergency Medicine; Visit Provider Obstetrics & Gynecology | DX: N83.202 Unspecified ovarian cyst, left side (principal); K66.1 Hemoperitoneum | CPT/HCPCS: 58662; 99283 ==

== ENCOUNTER 2025-04-05 14:12 | Outpatient (AMB) | payer OTHER, SELFPAY ==
--- NOTE | 2025-04-05 14:17 | A.OFFVIS_ITS ---
Vital Signs 04/05/25 14:28 Height 5 ft 3 in Weight 158 lb BMI 28.0 Intake Visit Reasons: post op Assistant Portfolio Manager Required: No Information Interpreted: non-clinical & clinical Accompanied by: Self / Same As Patient Allergies amoxicillin Adverse Reaction (Verified 04/05/25 14:26) unknown HPI Comments Details: Presenting 3 weeks post laparoscopic ovarian cystectomy and evacuation of pelvic hemoperitoneum for ruptured corpus luteum cyst. The patient is doing well with no complaints Pathology showed the following: Ovarian cyst wall, excision: Fragments of ovarian tissue and hemorrhagic corpus luteum cys [facility] Medical History (Updated 04/05/25 @ 14:37 by Perez Parisi MD) No pertinent past medical history Surgical History (Updated 04/05/25 @ 14:27 by Yesenia Padilla CMA) History of hysteroscopy Social History (Updated 04/05/25 @ 14:28 by Yesenia Padilla CMA) Household Members: Significant Other Housing: Apartment Alcohol intake: never Patient Tobacco Use Status: Former Tobacco user Current occupational status: employed 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 Sexually active: Yes Sexual orientation: Straight/Heterosexual Gender identity: Female Female Reproductive History Menstrual Age of Menarche: 14 Total pregnancies: 0 Physical Exam Vital Signs: BMI result Body Mass Index 28.0 GI Other: Incisions clean dry and intact Palpation (GI): Soft to palpation and nontender Percussion: Yes normal to percussion Auscultation: normal bowel sounds Assessment & Plan Assessment & Plan (1) Ruptured ovarian cyst: Comment: Postop Code(s): N83.209 - Unspecified ovarian cyst, unspecified side Category: Medical Plan: Discussed with the patient the intraoperative finding, pathology results. The patient is reassured, all questions answered, the patient verbalized understanding Coding Level of Care Code Est Pt Level 3 (05654) Diagnoses Ruptured ovarian cyst N83.209
[2025-04-05 14:28] VITALS: BMI 28.0
--- OUTSIDE RECORDS SUMMARY | 2025-04-05 15:29 | XMS_ITS | Encounter Summary ---
Author Organization [facility] Address [address] [place] [address] Phone Care Team Providers Care Stone Mason Name Role Phone Provider, Augustin MCCULLOUGH Primary Care Provider [phone] Encounter Details Date Type Department Care Team (Late st Contact Info) Description 05/01/2017 Conversion Encounter [facility] [place] [address] [place] [address] Social History Tobacco Use Types Packs/Day Years [...] on filedocumented in this encounter Care Teams Stone Mason Relationship Specialty Start Date End Date Provider, MD Augustin [address] [place] [id number] PCP - General Pediatrics 04/23/23 08/25/23 documented as of this encounter
== END 2025-04-05 14:40 | disposition home or self-care (01) ==
LOC: HO.HWS 14:12
PROVIDERS: Visit Provider Obstetrics & Gynecology
DX: N83.209 Unspecified ovarian cyst, unspecified side (principal)
CPT/HCPCS: 99024

== ENCOUNTER → 2025-04-05 14:12 | Outpatient (BNVA) | payer OTHER, SELFPAY | PROVIDERS: Visit Provider Obstetrics & Gynecology | DX: Z98.890 Other specified postprocedural states (principal); N83.209 Unspecified ovarian cyst, unspecified side | CPT/HCPCS: 99212 ==

== ENCOUNTER 2025-07-27 09:26 | Outpatient (AMB) | payer OTHER, SELFPAY ==
--- NOTE | 2025-07-27 09:32 | MHC.OFFVIS ---
Vital Signs 07/27/25 09:35 Height 5 ft 2 in Weight 175 lb BMI 32.0 BP 120/72 Intake Visit Reasons: annual Enginehouse Brakeman Required: No Information Interpreted: non-clinical & clinical Floor Installer: Floor Installer Present (Yesenia MIMS) Accompanied by: Self / Same As Patient Allergies amoxicillin Allergy (Intermediate, Verified 07/27/25 09:37) Rash Is last menstrual period known: Yes Last menstrual period: 07/22/25 HPI Comments Details: Presenting for annual exam. 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 [employer] Sexual orientation: Straight/Heterosexual Gender identity: Female Female Reproductive History Menstrual Age of Menarche: 14 Duration of menses: 3-5 days Date of last menstrual period: 07/22/25 control method: none Total pregnancies: 0 Review of Systems Const All systems reviewed & are unremarkable except as noted in HPI and below Card Reports as per HPI Resp Reports as per HPI GI Reports as per HPI and Reports no additional complaints Reports as per HPI Physical Exam Vital Signs: Last Vital Signs BP 120/72 07/27/25 09:35 BMI result Body Mass Index 32.0 Const General: cooperative, healthy appearing and comfortable Chest Chest palpation & inspection: normal inspection of the chest and normal palpation of entire chest wall Breast/axilla inspection: normal inspection of the breasts and normal inspection of the axillae Breast/axilla palpation: normal palpation of the breasts, normal palpation of the axillae and no axillary lymphadenopathy Resp Effort & Inspection: normal respiratory effort Auscultation: clear to auscultation bilaterally Percussion: percussion normal Cardio Palpation: normal PMI Rate: regular rate Rhythm: regular rhythm Heart sounds: no murmurs and no rubs Peripheral pulses: Peripheral pulses 2+ throughout GI Inspection: Yes normal to inspection Palpation (GI): Soft to palpation, nontender, no guarding, not rigid and No hepatosplenomegaly present Percussion: Yes normal to percussion Auscultation: normal bowel sounds Rectal Exam - Female: deferred General: Yes bladder normal to palpation External Female Exam: No lesion Speculum Exam - Vagina: normal appearance of the vagina, normal palpation, normal vaginal discharge and not erythematous Speculum Exam - Cervix: normal appearance of the cervix and normal palpation Bimanual exam- vagina & uterus: normal bimanual exam, normal palpation, uterine size normal, bladder normal to palpation, consistency normal and normal palpation Bimanual Exam- Adnexa, other: normal adnexae, no masses and no tenderness Assessment & Plan Assessment & Plan (1) Well woman exam: Code(s): Z01.419 - Encounter for gynecological examination (general) (routine) without abnormal findings Category: Medical Plan: Pap smear taken. Counseled the patient about the recommended dietary allowance of 1000 mg of Calcium & 600 IU of vitamin D. The patient was instructed to perform monthly self-breast exams and to schedule an annual exam in a year; All questions answered and the patient verbalized understanding. Instructed the patient to schedule annual exam in a year (2) Pelvic cramping: Code(s): R10.2 - Pelvic and perineal pain Category: Medical Plan: Urine dip and test done in the office were both negative. GC and chlamydia with BV panel taken and pelvic ultrasound ordered. Discussed with the patient the differential diagnosis of pelvic pain including but not limited to adnexal, uterine masses, pelvic infections (PID), GI the (Irritable bowel syndrome, diverticulitis, others), musculoskeletal, myofascial pain abdominal wall , adhesions, endometriosis, psychological and others causes. Will check results and treat accordingly. All questions answered, the patient verbalized understanding. Instructed the patient to schedule an ultrasound and a follow-up appointment in 2 weeks. All questions answered, the patient verbalized understanding and agreed with the plan. Orders: Orders Pap Smear Today Z01.419 - Encounter for gynecological examination (general) (routine) without abnormal findings CT NG by PCR Vag/Cerv Today Z01.419 - Encounter for gynecological examination (general) (routine) without abnormal findings US pelvic and transvaginal Today R10.2 - Pelvic and perineal pain Bacterial Vaginosis Panel Today Z01.419 - Encounter for gynecological examination (general) (routine) without abnormal findings Coding Level of Care Code Est Pt Level 3 (99688) Est Pt Prev Care 18-39y(18722) Diagnoses Well woman exam Z01.419 Pelvic cramping R10.2
[2025-07-27 09:35] VITALS: BP 120/72; BMI 32.0
== END 2025-07-27 11:13 | disposition home or self-care (01) ==
LOC: HO.HWS 09:27
PROVIDERS: Visit Provider Obstetrics & Gynecology
DX: Z01.419 Encounter for gynecological examination (general) (routine) without abnormal findings (principal); R10.20 Pelvic and perineal pain unspecified side
CPT/HCPCS: 99213; 99395; 99459

== ENCOUNTER 2025-07-27 09:26 | Outpatient (REF) | payer OTHER, SELFPAY ==
--- OUTSIDE RECORDS SUMMARY | 2025-07-27 11:42 | XMS_ITS | Clinical Summary ---
Author Organization [facility] Address [address] [place] [id number] Phone Care Team Providers Care Business Account Manager Name Role Phone Unavailable Primary Care Provider Unavailabl e Allergies Active Allergy Reactions Criticality Noted Date Comments Amoxicillin Rash Low Medications norgestimate-ethin yl estradiol 0.25-35 MG-MCG per tablet 02/19/2022 Active Active Problems Problem Noted Date Diagnosed Date Nexplanon in place 07/15/2021 Overview (07/15/2021): placed 11/2020 by her OB- doing well Episodic cannabis use 07/15/2021 Overview (07/15/2021): encouraged mindfullness mediation, sleep stories, yoga or Melatonin as safer/ healthier stratagies for night time relaxation. Decreased visual acuity 07/12/2020 Psychosocial stressors 07/12/2020 Overview (07/12/2021): 06/2020:Family conflict. Referred for counseling Body mass index (BMI) of 85t h to less than 95th percentile for age in pediatric patient 07/12/2020 Overview (07/12/2021): BMI peaked 10/2016, with steady improvement, 20 lb wt loss since, with current BMI 27.9 Immunizations Immunization Administration Dates Next Due DTaP 5 03/11/2007, 4,02/01/2003,11/29,2002 H1N1 07/05/2009 HPV Vaccine 9 Valent 06/04/2016,05/17/2015 Hep A, ped/adol 05/17/2015,03/25/2014 Hep B, ped/adol 05/10/2003,02/01/2003,2002 Hib (PRP-T) 01/24/2004, 3,2002,09/29 IPV 03/11/2007, 3,2002,09/29 Influenza, injectable, quadr ivalent, preservative free 07/13/2021,07/12/2020,10/16/2018 Influenza, injectable, trivalent 07/05/2009 MMR 08/02/2003 MMRV 03/11/2007 Meningococcal B Trumenba 07/13/2021,07/12/2020 Meningococcal Conj (Menactra) MCV4P 10/16/2018,0 03/25/2014 Pneumococcal Conjugate 03/11/2007,2002,2002,09/29 Tdap 03/25/2014 Varicella 08/02/2003 Family History Medical History Relation Name Comments Anxiety disorder Mother Relation Name Status Comments Brother Jakub Father Alive Father: Alive a nd well Half-Sister Alive Half sister (M) : Alive and well Mother Alive Mother: Alive a nd well Other No family histo ry of *Dental caries, No family history of *Sudden /[place] under 55, Family history of Obesity, No family history of *CVA/Stroke, No family history of *Thrombophilia, No family history of *Heart Disease Sister 1 Ligia Sister 2 Marcialana Alive Social History Tobacco Use Types Packs/Day Years Used Date Smoking Tobacco: Never Tobacco Cessation:Counseling Given: Yes Comments:Never smoker Alcohol Use Standard Drinks/Week Comments No 0 (1 standard drink = 0.6 oz pur e alcohol) Hunger/Food Answer Date Recorded In the last 12 months, did y ou or your family ever eat less than you felt you should because there wasn't enough money for food? No 07/12/2020 Stable Housing Answer Date Recorded Are you worried that in the next 2 months you may not have stable housing? No 07/12/2020 Transportation Concerns Answer Date Rec orded In the last 12 months, have you or your family ever had to go without healthcare because you didn't have a way to get there? No 07/12/2020 Hazards in Home Answer Date Recorded Think about the place you li ve. Do you have problems with any of the following? Pests (mice or roaches), mold, no/not working smoke detectors, water leaks, no window guards. No 2019 Financing Utilities Answer Date Recorde d In the last 12 months, has t he electric, gas, oil, or water company threatened to shut off your services in your home? No 07/12/2020 Safety at Home Answer Date Recorded Are you or your family worried about feeling saf e in your home? No 07/12/2020 Outside Support Answer Date Recorded Do you feel that you need mo re support from other people or programs to help you care for yourself or your family? No 07/12/2020 Understanding Health Concerns Answer Da te Recorded Do you need help understandi ng your or your child's healthcare needs (diagnosis, medications, plan, etc.)? No 07/12/2020 Financing Health Concerns Answer Date R ecorded In the last 12 months, was t here a time when your child needed to see a doctor or get medications or supplies but could not because of cost? No 07/12/2020 Missing School or Work Answer Date [place] rded Did you or your child miss s chool or work because of a health problem that could have been avoided? No 07/12/2020 Comments Unknown Sex and Gender Information Value Date Recorded Sex Assigned at Not on file Legal Sex Female 4:58 PM EDT Gender Identity Not on file Sexual Orientation Bisexual 07/12/2020 6: 03 PM EDT Last Filed Vital Signs Vital Sign Reading Time Taken Comments Blood Pressure 113/74 07/13/2021 3:49 PM EDT Pulse 75 07/13/2021 3:49 PM EDT Temperature 37.4 C (99.3 F) 02/19/2022 2:34 PM EDT Respiratory Rate - - Oxygen Saturation - - Inhaled Oxygen Concentration - - Weight 74.2 kg (163 lb 9.6 oz) 02/19/2022 2:34 P M EDT Height 160 cm (5' 3 ) 07/13/2021 3:49 PM EDT Body Mass Index 28.98 07/13/2021 3:49 PM EDT Plan of Treatment Health Maintenance Due Date Last Done Comments DTaP,Tdap,and Td Vaccines (7 - Td or Tdap) 03/25/2024 03/25/2014, 03/11/2007, 01/24/2004, Additional history exists Influenza Vaccines (#1) 2025 07/13/20 21, 07/12/2020, 10/16/2018, Additional history exists COVID-19 Vaccine (2024-2 6 season) 2025 12/22/2020 Hepatitis B Vaccines Completed 05/10/2003, 02/01/2003, 2002 HIB Vaccines Completed 01/24/2004, 01/14, 2002, Additional history exists IPV Vaccines Completed 03/11/2007, 04/16, 2002, Additional history exists MMR Vaccines Completed 03/11/2007, 08/02/2003 Pneumococcal Vaccine Completed 03/11/2007, 02/01/2003, 2002, Additional history exists Varicella Vaccines Completed 03/11/2007, 08/02/2003 Hepatitis A Vaccines Completed 05/17/2015, 03/25/20 14 HPV Vaccines Completed 06/04/2016, 05/17/2015 Meningococcal Vaccine Completed 10/16/2018, 014 Men B Vaccine Completed 07/13/2021, 07/12/2020 Procedures * Due to [facility] law, this organization might not be sharing sensitive test results. Procedure Name Priority Date/Time Associated Diagnosis Comments CHLAMYDIA AND GONORRHEA, AMPLIFIED Routine 07/13/2021 3:49 PM EDT Special screening examination for chlamydial disease from Last 3 Months or Most Recently Relevant to Health Maintenance Results * Due to [facility] law, this organization might not be sharing sensitive test results. * Chlamydia and Gonorrhoea, Amplified (07/13/2021 3:49 PM EDT) Chlamydia Trachomatis, DNA Probe NEGATIVE (NEG) [facility] Comment: No Chlamydia Trachomatis RNA detected in this patient's sample (REFERENCE RANGE/NORMAL VALUE: NOT DETECTED) Note: This test uses business communications instructor- mediated amplification method to detect rRNA from C. Trachomatis URINE GC AMP PROBE NEGATIVE (NEG) [facility] Comment: No Neisseria Gonorrhoeae RNA detected in this patient's sample (REFERENCE RANGE/NORMAL VALUE: NOT DETECTED) NOTE: This test uses business communications instructor-mediated amplification method to detect rRNA from N.Gonorrhoeae. A negative result does not preclude infection. In the case of a negative urine result, testing of an endocervical(female) or urethral (male) specimen is recommended if there is high clinical suspicion of infection. Due to very high sensitivity of Nucleic Acid Amplification Test, false positive results may occur. Therefore, specimen handling is extremely important. In patients in whom the disease is unlikely, additional sample for testing should be considered after an initial positive result. The performance characteristics of this test have not been evaluated in children. The Aptima Combo2 assay is not intended for the evaluation of suspected sexual abuse or for other medico-legal indications. The ordering provider should assess if the patient had consensual sex without risk of sexual abuse. Consult the [facility] if needed. Contact phone number . Therapeutic failure or success cannot be determined with the Aptima Combo2 assay since nucleic acid may persist following appropriate antimicrobial therapy. The Centers for Disease Control and Prevention (CDC) recommends confirmatory retesting using culture or a different nucleic acid amplification test when positive results occur, if indicated. Testing performed or reported by [facility], a Service of [facility], [address] [place] [id number] Darwin Sarmiento MD, Hosiery Pairer [facility]# [id number] Urine 07/13/2021 3:49 PM EDT 07/13/2021 11:24 PM EDT Amairani Chahal MD LAB MICROBIOLOGY - GENERAL REESE ELAM Final Result [facility] from Last 3 Months or Most Recently Relevant to Health Maintenance [facility]
--- OUTSIDE RECORDS SUMMARY | 2025-07-27 11:42 | XMS_ITS | Encounter Summary ---
Author Organization [facility] Address [address] [place] [address] Phone Care Team Providers Care English Language Arts Teacher Name Role Phone Provider, Augustin MCCULLOUGH Primary Care Provider [phone] Encounter Details Date Type Department Care Team (Late st Contact Info) Description 05/01/2017 Conversion Encounter [facility] [place] [address] [place] [address] Social History Tobacco Use Types Packs/Day Years [...] on filedocumented in this encounter Care Teams English Language Arts Teacher Relationship Specialty Start Date End Date Provider, MD Augustin [address] [place] [address] PCP - General Pediatrics 04/23/23 08/25/23 documented as of this encounter
[2025-07-28 04:11] LABS: Bacterial Vaginosis PCR NEGATIVE (Negative); Candida Group PCR DETECTED (Not Detect); Candida glab krusei PCR NOT DETECTED (Not Detect); Trichomonas vaginalis PCR NOT DETECTED (Not Detect)
[2025-07-28 04:42] LABS: CT PCR NOT DETECTED (Not Detect.); NG PCR NOT DETECTED (Not Detect.)
== END 2025-07-27 09:27 | disposition home or self-care (01) ==
LOC: HO.LNP 09:26
PROVIDERS: Visit Provider Obstetrics & Gynecology
DX: Z01.419 Encounter for gynecological examination (general) (routine) without abnormal findings (principal); R10.20 Pelvic and perineal pain unspecified side; Z20.2 Contact with and (suspected) exposure to infections with a predominantly sexual mode of transmission
CPT/HCPCS: 81515; 87491; 87591; 88175; 99212; 99395

== ENCOUNTER 2025-08-29 12:53 | Outpatient (REF) | payer OTHER, SELFPAY ==
--- NOTE | ~2025-08-29 | US_ITS ---
EXAMINATION: US PELVIS TRANSABDOMINAL AND TRANSVAGINAL HISTORY: R10.2 - Pelvic and perineal pain COMPARISON: Ultrasound 03/14/2025 TECHNIQUE: Transabdominal and endovaginal real-time 2D barrera-scale ultrasound was performed. FINDINGS: LMP:One week ago Uterus: The uterus is normal in size, measuring 6.4 x 3.1 x 3.5 cm. Uterus is retroverted and retroflexed Myometrium has a normal echotexture. No fibroids are identified. Endometrium: The endometrial stripe measures 6 mm in thickness. Right ovary: The right ovary measures 3.6 x 2.3 x 1.9 cm. Volume 8.4 mL The right ovary is normal in size and echotexture.. Multiple follicles. Normal vascular flow Left ovary: The left ovary measures 2.8 x 1.8 x 2.6 cm. Volume 6.9 mL The left ovary is normal in size and echotexture. Multiple follicles. Normal vascular flow Pelvic fluid: Small amount. US/US pelvic and transvaginal IMPRESSION: No significant abnormality demonstrated by ultrasound. Normal vascular flow in bilateral ovaries. Electronically signed by: Ray Atkins MD 08/30/2025 12:33 PM [facility]
--- OUTSIDE RECORDS SUMMARY | 2025-08-29 18:47 | XMS_ITS | Clinical Summary ---
Author Organization [facility] Address [address] [place] [phone] Phone Care Team Providers Care Authorization Coordinator Name Role Phone Unavailable Primary Care Provider [...] *Dental caries, No family history of *Sudden /[place] under 55, Family history of Obesity, No [...] Completed 07/13/2021, 07/12/2020 Procedures * Due to [facility] law, this organization might not be sharing sensitive test results. Procedure Name Priority Date/Time Associated Diagnosis Comments CHLAMYDIA AND GONORRHEA, AMPLIFIED Routine 07/13/2021 3:49 PM EDT Special screening examination for chlamydial disease from Last 3 Months or Most Recently Relevant to Health Maintenance Results * Due to [facility] law, this organization might not be sharing sensitive test results. * Chlamydia and Gonorrhoea, Amplified (07/13/2021 3:49 PM EDT) Chlamydia Trachomatis, DNA Probe NEGATIVE (NEG) [facility] Comment: No Chlamydia Trachomatis RNA detected in this patient's sample (REFERENCE RANGE/NORMAL VALUE: NOT DETECTED) Note: This test uses bulk plant operator- mediated amplification method to detect rRNA from C. Trachomatis URINE GC AMP PROBE NEGATIVE (NEG) [facility] Comment: No Neisseria Gonorrhoeae RNA detected in this patient's sample (REFERENCE RANGE/NORMAL VALUE: NOT DETECTED) NOTE: This test uses bulk plant operator-mediated amplification method to detect rRNA from N.Gonorrhoeae. [...] without risk of sexual abuse. Consult the [facility] if needed. Contact phone number . Therapeutic failure or success cannot be determined with the Aptima Combo2 assay since nucleic acid may persist following appropriate antimicrobial therapy. The Centers for Disease Control and Prevention (CDC) recommends confirmatory retesting using culture or a different nucleic acid amplification test when positive results occur, if indicated. Testing performed or reported by [facility], a Service of [facility], [address] [place] [address] Darwin Sarmiento MD, Wire Stitcher [facility]# [id number] Urine 07/13/2021 3:49 PM EDT 07/13/2021 11:24 PM EDT Amairani Chahal MD LAB MICROBIOLOGY - GENERAL REESE ELAM Final Result [facility] from Last 3 Months or Most Recently Relevant to Health Maintenance [facility] NON [facility]
--- OUTSIDE RECORDS SUMMARY | 2025-08-29 18:47 | XMS_ITS | Encounter Summary ---
Author Organization [facility] Address [address] [place] [address] Phone Care Team Providers Care Cell Assembly Pinner Name Role Phone Provider, Augustin MCCULLOUGH Primary Care Provider [phone] Encounter Details Date Type Department Care Team (Late st Contact Info) Description 05/01/2017 Conversion Encounter [facility] [place] [address] [place] [address] Social History Tobacco Use Types Packs/Day Years [...] on filedocumented in this encounter Care Teams Cell Assembly Pinner Relationship Specialty Start Date End Date Provider, MD Augustin [address] [place] [phone] PCP - General Pediatrics 04/23/23 08/25/23 documented as of this encounter
== END 2025-08-29 12:54 | disposition home or self-care (01) ==
LOC: HO.US 12:53
PROVIDERS: Visit Provider Obstetrics & Gynecology
DX: Z12.31 Encounter for screening mammogram for malignant neoplasm of breast (principal); R10.20 Pelvic and perineal pain unspecified side
CPT/HCPCS: 76830; 76856

== ENCOUNTER 2025-09-14 12:59 | Outpatient (AMB) | payer OTHER, SELFPAY ==
--- NOTE | 2025-09-14 13:07 | MHC.OFFVIS ---
Vital Signs 09/14/25 13:12 Height 5 ft 2 in Weight 175 lb BMI 32.0 BP 110/76 Intake Visit Reasons: Pelvic U/S follow up Workers' Compensation Magistrate Required: No Information Interpreted: non-clinical & clinical Accompanied by: Self / Same As Patient Allergies amoxicillin Allergy (Intermediate, Verified 09/14/25 13:16) Rash Is last menstrual period known: Yes Last menstrual period: 08/22/25 HPI Comments Details: Presenting for follow-up regarding pelvic cramping. 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 Sexual orientation: Straight/Heterosexual Gender identity: Female Female Reproductive History Menstrual Age of Menarche: 14 Date of last menstrual period: 08/22/25 Review of Systems Const All systems reviewed & are unremarkable except as noted in HPI and below Reports as per HPI and Reports no additional complaints GI Reports no additional complaints Reports no additional complaints Physical Exam Vital Signs: Last Vital Signs BP 110/76 09/14/25 13:12 BMI result Body Mass Index 32.0 Assessment & Plan Assessment & Plan (1) Pelvic cramping: Code(s): R10.2 - Pelvic and perineal pain Category: Medical Plan: Discussed with the patient the results of the workup done including negative GC/chlamydia, urine dip, urine test and pelvic ultrasound. Differential diagnosis of clutch operator causes that have not be ruled out yet include but not limited to endometriosis, pelvic adhesions , or others. Recommended for the patient to see her PCP for further workup for non clutch operator causes; if the all the results are negative and the patient's pelvic cramping is persistent, instructions given to patient to call back for further testing. Meanwhile, instructions were given the patient to go to emergency room or call in case of fever above 100.4, heavy vaginal bleeding, persistence or worsening of her pelvic pain. All questions answered, the patient verbalized understanding. Coding Level of Care Code Est Pt Level 3 (24134) Diagnoses Pelvic cramping R10.2
[2025-09-14 13:12] VITALS: BP 110/76; BMI 32.0
--- OUTSIDE RECORDS SUMMARY | 2025-09-14 14:30 | XMS_ITS | Encounter Summary ---
Author Organization [facility] Address [address] [place] [address] Phone Care Team Providers Care Test Borer Name Role Phone Provider, Augustin MCCULLOUGH Primary Care Provider [phone] Encounter Details Date Type Department Care Team (Late st Contact Info) Description 05/01/2017 Conversion Encounter [facility] - [place] [address] [place] [address] Social History Tobacco Use Types Packs/Day Years [...] on filedocumented in this encounter Care Teams Test Borer Relationship Specialty Start Date End Date Provider, MD Augustin [address] [place] [phone] PCP - General Pediatrics 04/23/23 08/25/23 documented as of this encounter
--- OUTSIDE RECORDS SUMMARY | 2025-09-14 14:30 | XMS_ITS | Clinical Summary ---
Author Organization [facility] Address [address] [place] [phone] Phone Care Team Providers Care Trashman Name Role Phone Unavailable Primary Care Provider [...] *Dental caries, No family history of *Sudden /[place] under 55, Family history of Obesity, No [...] Completed 07/13/2021, 07/12/2020 Procedures * Due to [facility] law, this organization might not be sharing sensitive test results. Procedure Name Priority Date/Time Associated Diagnosis Comments CHLAMYDIA AND GONORRHEA, AMPLIFIED Routine 07/13/2021 3:49 PM EDT Special screening examination for chlamydial disease from Last 3 Months or Most Recently Relevant to Health Maintenance Results * Due to [facility] law, this organization might not be sharing sensitive test results. * Chlamydia and Gonorrhoea, Amplified (07/13/2021 3:49 PM EDT) Chlamydia Trachomatis, DNA Probe NEGATIVE (NEG) [facility] Comment: No Chlamydia Trachomatis RNA detected in this patient's sample (REFERENCE RANGE/NORMAL VALUE: NOT DETECTED) Note: This test uses metal melter- mediated amplification method to detect rRNA from C. Trachomatis URINE GC AMP PROBE NEGATIVE (NEG) [facility] Comment: No Neisseria Gonorrhoeae RNA detected in this patient's sample (REFERENCE RANGE/NORMAL VALUE: NOT DETECTED) NOTE: This test uses metal melter-mediated amplification method to detect rRNA from N.Gonorrhoeae. [...] without risk of sexual abuse. Consult the [facility] if needed. Contact phone number . Therapeutic failure or success cannot be determined with the Aptima Combo2 assay since nucleic acid may persist following appropriate antimicrobial therapy. The Centers for Disease Control and Prevention (CDC) recommends confirmatory retesting using culture or a different nucleic acid amplification test when positive results occur, if indicated. Testing performed or reported by [facility], a Service of [facility], [address] [place] [id number] Darwin Sarmiento MD, Gem Carver [facility]# [id number] Urine 07/13/2021 3:49 PM EDT 07/13/2021 11:24 PM EDT Amairani Chahal MD LAB MICROBIOLOGY - GENERAL REESE ELAM Final Result [facility] from Last 3 Months or Most Recently Relevant to Health Maintenance [facility] NON P[facility]
== END 2025-09-14 14:14 | disposition home or self-care (01) ==
LOC: HO.HWS 13:00
PROVIDERS: Visit Provider Obstetrics & Gynecology
DX: R10.20 Pelvic and perineal pain unspecified side (principal)
CPT/HCPCS: 99213

== ENCOUNTER → 2025-09-14 12:59 | Outpatient (BNVA) | payer OTHER, SELFPAY | PROVIDERS: Visit Provider Obstetrics & Gynecology | DX: R10.20 Pelvic and perineal pain unspecified side (principal) | CPT/HCPCS: 99212 ==